=== PATIENT | female | born 1980 | race Caucasian/White ===

== ENCOUNTER 2016-09-19 23:00 | Emergency (ER) | payer BC ==
[~2016-09-19] VITALS: Ht 172.7 cm; Wt 86.0 kg
[2016-09-19] MEDS ORDERED: LEVO137T2 PO (23:16)
[2016-09-20 00:37] LABS: BASO # 0.1 K/mm3 (0.0-0.2); BASO % 0.9 % (0.0-1.0); EOS # 0.3 K/mm3 (0.0-0.50); EOS % 3.8 % (0.0-3.0); LARGE UNSTAINED CELL # 0.1 K/mm3 (0.0-0.4); LARGE UNSTAINED CELL % 1.5 % (0.0-4.0); LYMPH # 2.6 K/mm3 (1.5-4.5); LYMPH % 31.7 % (24.0-44.0); MEAN CORPUSCULAR VOLUME 97.1 fl (80.0-96.0); MONO # 0.3 K/mm3 (0.0-0.8); MONO % 4.2 % (0.0-5.0); NEUTROPHILS # 4.6 K/mm3 (1.8-7.7); NEUTROPHILS % 57.9 % (36.0-66.0); PLATELET COUNT, AUTOMATED 284 k/mm3 (150-450); RED CELL DISTRIBUTION WIDTH 12.6 % (11.5-14.5); WHITE BLOOD COUNT 7.9 K/mm3 (4.0-10.0)
[2016-09-20 01:03] LABS: ANION GAP 4 MEQ/L (8-16); BLOOD UREA NITROGEN 17 MG/DL (7-18); CALCIUM LEVEL 9.3 MG/DL (8.5-10.1); CARBON DIOXIDE LEVEL 32 MEQ/L (21-32); CHLORIDE LEVEL 103 MEQ/L (98-107); CREATININE FOR GFR 1.04 MG/DL (0.55-1.02); GLOMERULAR FILTRATION RATE > 60.0 (>60); GLUCOSE, FASTING 96 MG/DL (70-105); SODIUM LEVEL 139 MEQ/L (136-145)
[2016-09-20 01:06] VITALS: BP 126/76
== END 2016-09-20 01:08 | disposition home or self-care (01) ==
LOC: M ED 23:00
DX: R10.2 Pelvic and perineal pain (principal); T19.2XXA Foreign body in vulva and vagina, initial encounter; N89.8 Other specified noninflammatory disorders of vagina; X58.XXXA Exposure to other specified factors, initial encounter; Y92.89 Other specified places as the place of occurrence of the external cause; Y93.89 Activity, other specified; Y99.8 Other external cause status; E03.9 Hypothyroidism, unspecified; Z79.899 Other long term (current) drug therapy; Z88.0 Allergy status to penicillin

== ENCOUNTER → 2020-01-15 | Outpatient (CLI) | payer BC ==
[~2020-01-15] MED LIST: LEVO137T2 PO
--- NOTE | 2020-01-15 09:05 | REP ---
INDICATION: R10.9 ABDOMINAL PAIN,PROMINENT TENDER MIDLINE AORTA. COMPARISON: None. TECHNIQUE: Retroperitoneal transabdominal sonography. FINDINGS: Scanning through the retroperitoneum demonstrates that the abdominal aorta is normal in caliber at the level of the diaphragmatic hiatus measuring 2.1 x 2.2 cm in AP by transverse dimension respectively. The measurements of the aorta at the level of the renal artery origins is 1.8 x 1.7 cm, AP by transverse dimension respectively. The distal aorta tapers to 1.3 x 1.5 cm AP by transverse dimension. The right and left common iliac arteries are normal measuring 0.8 and 1.1 cm in AP dimension respectively. No aneurysm is seen. No periaortic disease is observed. IMPRESSION: Negative abdominal aortic sonography. <Electronically signed by Hemal Stanley > 01/15/20 0901
== END ==
LOC: M WHC 08:02
PROVIDERS: ATTEND Family Medicine
DX: R10.9 Unspecified abdominal pain (principal)

== ENCOUNTER 2020-12-04 08:27 | Emergency (ER) | payer BC ==
[~2020-12-04] VITALS: Ht 175.3 cm; Wt 96.4 kg
[2020-12-04 10:44] LABS: BASO % 0.9 % (0.0-1.0); EOS % 1.1 % (0.0-3.0); HEMATOCRIT 40.3 % (36.0-47.0); HEMOGLOBIN 13.3 g/dl (12.0-15.5); LYMPH # 1.1 10^3/uL (1.5-5.0); LYMPH % 31.5 % (24.0-44.0); MEAN CORPUSCULAR HEMOGLOBIN 31.1 pg (27.0-33.0); MEAN CORPUSCULAR VOLUME 94.2 fl (80.0-96.0); MONO # 0.6 10^3/uL (0.0-0.8); MONO % 15.6 % (2.0-8.0); NEUTROPHILS # 1.8 10^3/uL (1.5-8.5); NEUTROPHILS % 50.6 % (36.0-66.0); PLATELET COUNT, AUTOMATED 263 10^3/uL (150-450); RED BLOOD COUNT 4.28 10^6/uL (4.00-5.40); WHITE BLOOD COUNT 3.5 10^3/uL (4.0-10.0)
[2020-12-04 11:13] LABS: HCG, SERUM QUALITATIVE NEGATIVE (NEGATIVE)
[2020-12-04 11:16] LABS: RSV AMPLIFICATION NEGATIVE (NEGATIVE)
[2020-12-04 11:21] LABS: ALBUMIN 3.7 GM/DL (3.2-5.2); ALT/SGPT 24 U/L (12-78); BILIRUBIN,DIRECT < 0.1 MG/DL (0.0-0.2); BILIRUBIN,TOTAL 0.2 MG/DL (0.2-1.0); BLOOD UREA NITROGEN 11 MG/DL (7-18); CALCIUM LEVEL 8.7 MG/DL (8.5-10.1); CARBON DIOXIDE LEVEL 29 MEQ/L (21-32); CHLORIDE LEVEL 105 MEQ/L (98-107); CK-MB VALUE MASS < 1.0 NG/ML (<3.6); CPK CREATINE PHOSPHOKINASE 59 U/L (26-192); CREATININE FOR GFR 0.91 MG/DL (0.55-1.30); FREE T4 0.97 NG/DL (0.76-1.46); GLOMERULAR FILTRATION RATE > 60.0 (>58); GLUCOSE, FASTING 96 MG/DL (70-100); MB/CK RELATIVE INDEX 1.69 (< OR =4); NT-PRO BNP 12 PG/ML (<125); SODIUM LEVEL 139 MEQ/L (136-145); TOTAL PROTEIN 7.1 GM/DL (6.4-8.2); TROPONIN I < 0.02 NG/ML (< 0.10)
--- NOTE | 2020-12-04 12:20 | REP ---
INDICATION: CHEST PAIN. COMPARISON: None. TECHNIQUE: Upright AP portable chest image was obtained FINDINGS: The lungs are clear. The heart borders, mediastinum and pulmonary vascular pattern normal. The upper abdominal bowel gas pattern is normal. There are no bony abnormalities chest. IMPRESSION: No evidence of acute cardiopulmonary pathology. <Electronically signed by Bello Jalloh > 12/04/20 [id number]
[2020-12-04 13:45] VITALS: BP 120/68
--- NOTE | 2020-12-05 08:13 | ECGEPIP ---
[facility] - ED Test Date: 2020-12-04 Pat Name: ARMIDA GARAY Department: Room: - Gender: Female [employer]: serjio : 1980 Requested By: Demetrice Griffin Order Number: [id number] Reading MD: Jay Ambrocio Measurements Intervals [place] Rate: 63 P: 52 NV: 146 QRS: 19 QRSD: 78 T: 24 QT: 390 QTc: 399 Interpretive Statements Normal sinus rhythm with sinus arrhythmia POOR R WAVE PROGRESSION NO PRIORS FOR COMPARISON Nonspecific ST abnormality Electronically Signed on 12-05-2020 8:13:09 EDT by Jay Ambrocio
== END 2020-12-04 13:49 | disposition home or self-care (01) ==
LOC: M ED 08:27
DX: U07.1 COVID-19 (principal); R06.02 Shortness of breath; Z79.899 Other long term (current) drug therapy; Z88.0 Allergy status to penicillin

== ENCOUNTER → 2022-08-29 | Outpatient (CLI) | payer OTHER ==
[2022-08-29 09:56] LABS: CHOLESTEROL RISK RATIO 4.14 (<5); HDL CHOLESTEROL 63.5 MG/DL (>40); LDL CHOLESTEROL 183.1 MG/DL (<100); NON-HDL-C 199.5 MG/DL
== END ==
LOC: M LAB 07:52
PROVIDERS: ATTEND Dentist
DX: E78.5 Hyperlipidemia, unspecified (principal)

== ENCOUNTER 2024-07-10 18:29 | Emergency (ER) | payer BC, OTHER ==
[~2024-07-10] VITALS: Ht 175.3 cm; Wt 87.5 kg
[2024-07-10 19:42] LABS: BASO # 0.1 10^3/uL (0.0-0.2); BASO % 0.8 % (0.0-1.0); EOS % 0.3 % (0.0-3.0); HEMATOCRIT 38.7 % (36.0-47.0); LYMPH # 1.3 10^3/uL (1.5-5.0); LYMPH % 15.2 % (24.0-44.0); MEAN CORPUSCULAR HEMOGLOBIN 31.6 pg (27.0-33.0); MEAN CORPUSCULAR HGB CONC 33.6 g/dl (32.0-36.5); MEAN CORPUSCULAR VOLUME 93.9 fl (80.0-96.0); MONO # 0.4 10^3/uL (0.0-0.8); NEUTROPHILS % 79.6 % (36.0-66.0); PLATELET COUNT, AUTOMATED 244 10^3/uL (150-450); RED BLOOD COUNT 4.12 10^6/uL (4.00-5.40); WHITE BLOOD COUNT 8.8 10^3/uL (4.0-10.0)
[2024-07-10 20:03] LABS: LIPASE 38 U/L (12-53)
[2024-07-10 20:05] LABS: ALBUMIN 3.8 G/DL (3.2-5.2); ALKALINE PHOSPHATASE 50 U/L (35-104); ALT/SGPT 17 U/L (7.0-40); AST/SGOT 15 U/L (<34); BILIRUBIN,DIRECT 0.1 MG/DL (<0.4); BILIRUBIN,TOTAL 0.6 MG/DL (0.3-1.2); TOTAL PROTEIN 6.9 G/DL (5.7-8.2)
[2024-07-10 20:07] LABS: HCG, SERUM QUALITATIVE NEGATIVE (NEGATIVE)
[2024-07-10 21:06] LABS: BLOOD UREA NITROGEN 14 MG/DL (9-23); CALCIUM LEVEL 9.1 MG/DL (8.5-10.1); CARBON DIOXIDE LEVEL 24 MMOL/L (20-31); CHLORIDE LEVEL 107 MMOL/L (98-107); GLOMERULAR FILTRATION RATE > 90.0 (>58); GLUCOSE, FASTING 109 MG/DL (60-100); POTASSIUM SERUM 4.4 MMOL/L (3.5-5.1); SODIUM LEVEL 140 MMOL/L (136-145)
[2024-07-10 22:06] VITALS: BP 117/66; TEMP 97.6; O2SAT 98
[2024-07-10 22:36] LABS: KETONE, URINE AUTO RFX NEGATIVE (NEGATIVE); LEUKOCYTE ESTERASE UR AUTO RFX NEGATIVE (NEGATIVE); MUCUS, URINE RFX SMALL (NEGATIVE); NITRITE, URINE AUTO RFX NEGATIVE (NEGATIVE); RBC, URINE AUTO RFX 4 /HPF (0-3); SQUAM EPITHELIAL CELL UR AURFX 0 /HPF (0-6); WBC, URINE AUTO RFX 1 /HPF (0-3)
== END 2024-07-10 22:06 | disposition home or self-care (01) ==
LOC: M ED 18:29
DX: N83.291 Other ovarian cyst, right side (principal); Z88.0 Allergy status to penicillin; Z79.899 Other long term (current) drug therapy